=== PATIENT | female | born 1990 | race Two or more races ===

== ENCOUNTER → 2016-09-08 | Outpatient (CLI) | payer MEDICAID, OTHER | END | disposition home or self-care (01) | LOC: Rad HDHVI 14:58 | PROVIDERS: ATTEND Internal Medicine Cardiovascular Disease | DX: R07.9 Chest pain, unspecified (principal); R42 Dizziness and giddiness; R06.02 Shortness of breath | CPT/HCPCS: 93306 ==

== ENCOUNTER → 2016-10-08 | Outpatient (CLI) | payer MEDICAID ==
[~2016-10-08] VITALS: Ht 170.2 cm; Wt 67.1 kg
== END | disposition home or self-care (01) ==
LOC: Rad HDHVI 14:02
PROVIDERS: ATTEND Internal Medicine Cardiovascular Disease
DX: R07.89 Other chest pain (principal); R06.02 Shortness of breath; R42 Dizziness and giddiness; R00.2 Palpitations; Z82.49 Family history of ischemic heart disease and other diseases of the circulatory system
CPT/HCPCS: 93017